=== PATIENT | female | born 1990 | race Caucasian/White ===

== ENCOUNTER 2018-09-09 05:30 | Emergency (ER) | payer BC ==
--- NOTE | 2018-09-09 06:27 | EDM.PDOC ---
ED HPI GENERAL MEDICAL PROBLEM - General Chief Complaint: Abdominal Pain Stated Complaint: left upper abdominal pain Time Seen by Provider: 09/09/18 06:06 Source of Information: Reports: Patient History Limitations: Reports: No Limitations - History of Present Illness INITIAL COMMENTS - FREE TEXT/NARRATIVE: Patient presents with LUQ pain that started about 5 hours ago at work ([employer] The pain was 8-9/10 at its worst and she took Advil. She had just eaten a milkshake before it started. She tried to work through it since she gets this pain at least weekly that lasts usually a couple hours but after awhile she couldn't take it anymore. She left work early, came to ER before going home. Now the pain is 2-3/10 she says. She has seen her PCP and had US but no definite cause; they thought it might be a yeast infection. She denies any kidney disease, infections or stones. Denies dysuria, hematuria. Pt takes OCP and missed her period last month. She had been on Mirena previously. 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 Denies: Anorexia, Bloody Stool, Constipation, Diarrhea, Decreased Appetite, Difficulty Swallowing, Hematemesis, Vomiting : Reports: Flank Pain (left). Denies: Discharge, Dysuria, Frequency, Hematuria, Urgency Musculoskeletal: Denies: Neck Pain, Shoulder Pain, Arm Pain, Back Pain, Hand Pain, Leg Pain Skin: Denies: Cyanosis, Jaundice, Mottled, Pallor, Diaphoresis Neurological: Reports: Headache (she frequently gets minor headaches). Denies: Confusion, Dizziness, Seizure, Syncope, Trouble Speaking, Difficulty Walking Psychiatric: Reports: Anxiety (she has fairly recently started getting panic attacks at work that sometimes upsets her stomach but seems unrelated to the LUQ pain). Denies: Agitation, Confusion ED EXAM, GI/ABD - Physical Exam Exam: See Below Exam Limited By: No Limitations General Appearance: Alert, WD/WN, No Apparent Distress Eyes: Bilateral: Normal Appearance, EOMI Ears: Normal External Exam, Hearing Grossly Normal Nose: Normal Inspection, No Blood Throat/Mouth: Normal Inspection, Normal Lips, Normal Teeth, Normal Gums, Normal Oropharynx, Normal Voice, No Airway Compromise Head: Atraumatic, Normocephalic Neck: Normal Inspection, Full Range of Motion Respiratory/Chest: No Respiratory Distress, Lungs Clear, Normal Breath Sounds, No Accessory Muscle Use Cardiovascular: Regular Rate, Rhythm, No Murmur GI/Abdominal Exam: Soft, No Organomegaly, No Distention, No Abnormal Bruit, Tender (LUQ and mildly suprapubic otherwise painfree). No: Guarding, Rigid Back Exam: Full Range of Motion, CVA Tenderness (L). No: CVA Tenderness (R) Extremities: Normal Inspection, Normal Range of Motion Neurological: Alert, Oriented, Normal Cognition, No Motor/Sensory Deficits Psychiatric: Normal Affect, Normal Mood Skin Exam: Warm, Dry, Intact, Normal Color, No Rash Course - Vital Signs Last Recorded V/S: Last Vital Signs Temp 98.7 F 09/09/18 05:33 Pulse 73 09/09/18 06:39 Resp 16 09/09/18 06:39 BP 131/66 09/09/18 06:39 Pulse Ox 98 09/09/18 06:39 - Orders/Labs/Meds Orders: Active Orders 24 hr Category Date Time Status Sodium Chloride 0.9% [Normal Saline] 50 ml Med 09/09/18 07:00 Active IV ASDIRECTED Medication Orders Sodium Chloride (Normal Saline) 50 mls @ 200 mls/hr IV ASDIRECTED PRITESH Last Admin: 09/09/18 07:08 Dose: 200 mls/hr Labs: Laboratory Tests 09/09/18 09/09/18 09/09/18 Range/Units 05:50 06:05 06:05 WBC 9.77 (5.00-10.00) 10^3/uL RBC 4.17 (3.80-5.50) 10^6/uL Hgb 12.7 (12.0-16.0) g/dL Hct 36.2 L (37.0-47.0) % MCV 86.8 (82.0-92.0) fL MCH 30.5 (27.0-31.0) pg MCHC 35.1 (32.0-36.0) g/dL RDW 12.5 (11.5-14.5) % Plt Count 275 (150-400) 10^3/uL MPV 8.9 (7.4-10.4) fL Immature Gran % (Auto) 0.1 (0.0-5.0) % Neut % (Auto) 59.2 (50.0-70.0) % Lymph % (Auto) 30.2 (20.0-40.0) % [place] % (Auto) 7.9 (2.0-8.0) % Eos % (Auto) 2.4 (1.0-3.0) % Baso % (Auto) 0.2 (0.0-1.0) % Immature Gran # (Auto) 0.01 (0.00-0.50) 10^3/uL Neut # (Auto) 5.79 (2.50-7.00) 10^3/uL Lymph # (Auto) 2.95 (1.00-4.00) 10^3/uL [place] # (Auto) 0.77 (0.10-0.80) 10^3/uL Eos # (Auto) 0.23 (0.10-0.30) 10^3/uL Baso # (Auto) 0.02 (0.00-0.10) 10^3/uL Sodium 138 (136-145) mmol/L Potassium 4.0 (3.3-5.3) mmol/L Chloride 101 (98-115) mmol/L Carbon Dioxide 24.6 (21.0-32.0) mmol/L Anion Gap 16.4 H (5-15) mmol/L BUN 20 (6-25) mg/dL Creatinine 0.75 (0.51-1.17) mg/dL Est Cr Clr Drug Dosing 94.71 mL/min Estimated GFR (MDRD) > 60 mL/min Glucose 93 (75 - 99) mg/dL Calcium 8.8 (8.7-10.3) mg/dL Total Bilirubin 0.4 (0.2-1.0) mg/dL AST 15 (15-37) U/L ALT 23 (12-78) U/L Alkaline Phosphatase 57 (46-116) IU/L Total Protein 7.6 (6.4-8.2) g/dL Albumin 3.08 (3.00-4.80) g/dL Lipase 122 (73-393) U/L HCG, Qual (NEGATIVE) Specimen Type Urincc Urine Color Yellow (YELLOW) Urine Appearance Slightly cloudy H (CLEAR) Urine pH 5.5 (5.0-9.0) Ur Specific [place] 1.025 (1.005-1.030) Urine Protein 30 H (NEGATIVE) mg/dL Urine Glucose (UA) Negative (NEGATIVE) mg/dL Urine Ketones Trace H (NEGATIVE) mg/dL Urine Occult Blood Negative (NEGATIVE) Urine Nitrite Negative (NEGATIVE) Urine Bilirubin Negative (NEGATIVE) Urine Urobilinogen 0.2 (0.2-1.0) E.U./dL Ur Leukocyte Esterase Negative (NEGATIVE) Urine RBC Not seen (0-5) /HPF Urine WBC 0-5 (0-5) /HPF Ur Epithelial Cells Many H /LPF Urine Bacteria Few (NONE TO FEW) /HPF Urine Mucus Few H (NEGATIVE) /LPF 09/09/18 Range/Units 06:05 WBC (5.00-10.00) 10^3/uL RBC (3.80-5.50) 10^6/uL Hgb (12.0-16.0) g/dL Hct (37.0-47.0) % MCV (82.0-92.0) fL MCH (27.0-31.0) pg MCHC (32.0-36.0) g/dL RDW (11.5-14.5) % Plt Count (150-400) 10^3/uL MPV (7.4-10.4) fL Immature Gran % (Auto) (0.0-5.0) % Neut % (Auto) (50.0-70.0) % Lymph % (Auto) (20.0-40.0) % [place] % (Auto) (2.0-8.0) % Eos % (Auto) (1.0-3.0) % Baso % (Auto) (0.0-1.0) % Immature Gran # (Auto) (0.00-0.50) 10^3/uL Neut # (Auto) (2.50-7.00) 10^3/uL Lymph # (Auto) (1.00-4.00) 10^3/uL [place] # (Auto) (0.10-0.80) 10^3/uL Eos # (Auto) (0.10-0.30) 10^3/uL Baso # (Auto) (0.00-0.10) 10^3/uL Sodium (136-145) mmol/L Potassium (3.3-5.3) mmol/L Chloride (98-115) mmol/L Carbon Dioxide (21.0-32.0) mmol/L Anion Gap (5-15) mmol/L BUN (6-25) mg/dL Creatinine (0.51-1.17) mg/dL Est Cr Clr Drug Dosing mL/min Estimated GFR (MDRD) mL/min Glucose (75 - 99) mg/dL Calcium (8.7-10.3) mg/dL Total Bilirubin (0.2-1.0) mg/dL AST (15-37) U/L ALT (12-78) U/L Alkaline Phosphatase (46-116) IU/L Total Protein (6.4-8.2) g/dL Albumin (3.00-4.80) g/dL Lipase (73-393) U/L HCG, Qual Negative (NEGATIVE) Specimen Type Urine Color (YELLOW) Urine Appearance (CLEAR) Urine pH (5.0-9.0) Ur Specific [place] (1.005-1.030) Urine Protein (NEGATIVE) mg/dL Urine Glucose (UA) (NEGATIVE) mg/dL Urine Ketones (NEGATIVE) mg/dL Urine Occult Blood (NEGATIVE) Urine Nitrite (NEGATIVE) Urine Bilirubin (NEGATIVE) Urine Urobilinogen (0.2-1.0) E.U./dL Ur Leukocyte Esterase (NEGATIVE) Urine RBC (0-5) /HPF Urine WBC (0-5) /HPF Ur Epithelial Cells /LPF Urine Bacteria (NONE TO FEW) /HPF Urine Mucus (NEGATIVE) /LPF Meds: Medications Generic Name Dose Route Start Last Admin Trade Name Dwain PRN Reason Stop Dose Admin Sodium Chloride 50 mls @ 200 mls/hr 09/09/18 07:00 09/09/18 07:08 Normal Saline IV 200 mls/hr ASDIRECTED PRITESH Administration Discontinued Medications Generic Name Dose Route Start Last Admin Trade Name Dwain PRN Reason Stop Dose Admin Iopamidol 100 ml 09/09/18 06:47 09/09/18 07:08 Isovue-300 (61%) IVPUSH 09/09/18 06:48 100 ml ONETIME ONE Administration - Re-Assessments/Exams Free Text/Narrative Re-Assessment/Exam: 09/09/18 08:[address] normal aside from some proteinuria. We discussed these findings and I advised follow up with PCP as well as trying some antacids to see if it helped her symptoms any. I also advised asking her PCP about further testing such as a 24-hour urine to evaluate the proteinuria further and may need a nephrology consult. Patient is feeling fine now without pain. Discharged to home in stable condition. Departure - Departure Time of Disposition: 07:58 Disposition: Home, Self-Care 01 Condition: Good Clinical Impression: LUQ pain Proteinuria Qualifiers: Proteinuria type: unspecified Qualified Code(s): R80.9 - Proteinuria, unspecified - Discharge Information Instructions: Abdominal Pain, Adult Referrals: PCP,Unknown [Primary Care Provider] - Forms: ED Department Discharge Additional Instructions: 1. Drink 8 cups of water daily. 2. You could try an antacid like Zantac or Mylanta to see if it provides any relief which would also help determine the cause. 3. Follow up with your PCP in 1-2 weeks if this continues or sooner if worsening. - My Orders Last 24 Hours: My Active Orders 09/09/18 07:00 Sodium Chloride 0.9% [Normal Saline] 50 ml IV ASDIRECTED - Assessment/Plan Last 24 Hours: My Active Orders 09/09/18 07:00 Sodium Chloride 0.9% [Normal Saline] 50 ml IV ASDIRECTED
[2018-09-09 06:37] LABS: ANION GAP 16.4 mmol/L (5-15); CHLORIDE,CL 101 mmol/L (98-115); SODIUM,NA 138 mmol/L (136-145)
[2018-09-09 06:40] VITALS: BP 131/66
[2018-09-09] MEDS ORDERED: Iopamidol 612 MG/ML 100 ML Bottle IVPUSH ONE (06:47)
[2018-09-09] MEDS ORDERED: Sodium Chloride 0.9% 50 ML IV SCH (07:00)
--- NOTE | 2018-09-09 08:03 | CT ---
[id number] CT/CT Abdomen Pelvis W IV EXAM: ABDOMEN AND PELVIS CT WITH CONTRAST INDICATION: Left upper quadrant abdominal pain. COMPARISON: None. DISCUSSION: The spleen is mildly enlarged measuring up to 14.4 cm in length. Mild colonic diverticulosis without evidence of diverticulitis. Grade 1 L5-S1 spondylolisthesis relating to bilateral pars defects. The osseous structures are otherwise unremarkable. The liver, gallbladder, pancreas, adrenal glands, kidneys, small bowel and the appendix are normal in appearance. No adenopathy, free air free fluid. There are scattered bilateral ovarian follicles. The pelvic structures are otherwise normal in appearance. IMPRESSION: 1. No acute findings. Erik Saunders MD 09/09/18 0802 Thank you for allowing us to participate in the care of your patient.
== END 2018-09-09 08:18 | disposition home or self-care (01) ==
LOC: KA.ED 05:30
DX: R10.12 Left upper quadrant pain (principal); R80.9 Proteinuria, unspecified
CPT/HCPCS: 36415; 74177; 80053; 81001; 83690; 84703; 85025; 99284-25; J7050; Q9967

== ENCOUNTER 2020-11-18 21:10 | Emergency (ER) | payer BC ==
[2020-11-18] MEDS ORDERED: Orphenadrine 60 MG/2 ML Inj IM ONE (21:33)
--- NOTE | 2020-11-18 21:46 | EDM.PDOC ---
ED HPI GENERAL MEDICAL PROBLEM - General Chief Complaint: General Stated Complaint: right rib/back pain Time Seen by Provider: 11/18/20 21:34 Source of Information: Reports: Patient History Limitations: Reports: No Limitations - History of Present Illness INITIAL COMMENTS - FREE TEXT/NARRATIVE: Presents with right upper anterior and posterior back pain. Patient woke up with this felt like she may have slept wrong. 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 She is having pain off and on with spasming. It hurts to take a deep breath when she moves her upper back. Easily reproducible with chest wall pain. No DVT symptoms no cough no fever chills cold symptoms or chest pain. She has done a TENS unit and taking NSAIDs with ice and heat still pain is 9-10 when she moves. Pain is very minimal at rest. - Related Data Allergies Allergy/AdvReac Type Severity Reaction Status Date / Time No Known Drug Allergies Allergy Cannot Verified 09/09/18 05:31 Remember Home Meds: Home Meds Norethindrone-Ethin. 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 Musculoskeletal: Reports: Back Pain. Denies: Neck Pain, Shoulder Pain ED EXAM, GENERAL - Physical Exam Exam: See Below Exam Limited By: No Limitations General Appearance: Alert, WD/WN, No Apparent Distress Head: Atraumatic, Normocephalic Respiratory/Chest: No Respiratory Distress, Lungs Clear, Normal Breath Sounds Cardiovascular: Normal Peripheral Pulses, Regular Rate, Rhythm Back Exam: Normal Inspection, Muscle Spasm, Other (Right upper back pain pain at the right posterior ribs 5 through 7 along with pain along her scapula throughout the whole muscle with spasming at times) Neurological: Alert, Oriented Skin Exam: Warm, Dry, Intact, No Rash Course - Orders/Labs/Meds Orders: Active Orders 24 hr Category Date Time Status Ribs 2V w Chest Rt [CR] Stat Exams 11/18/20 21:33 Ordered Meds: Medications Discontinued Medications Generic Name Dose Route Start Last Admin Trade Name Dwain PRN Reason Stop Dose Admin Orphenadrine Citrate 60 mg 11/18/20 21:33 Orphenadrine 60 Mg/2 Ml Inj IM 11/18/20 21:34 ONETIME ONE - Re-Assessments/Exams Free Text/Narrative Re-Assessment/Exam: 11/18/20 21:50 Norflex given for muscle spasms patient took NSAIDs prior to arrival. Discussed continue with [id number] analgesics with food for pain although up with a chiropractor on Friday return precautions selena with patient. X-ray obtained no signs of fracture or rib dislocation. Departure - Departure Time of Disposition: 21:51 Disposition: Home, Self-Care 01 Condition: Good Clinical Impression: Upper back pain on right side, Muscle spasm - Discharge Information *PRESCRIPTION DRUG MONITORING PROGRAM REVIEWED*: No *COPY OF PRESCRIPTION DRUG MONITORING REPORT IN PATIENT RIZWAN: No Instructions: Muscle Cramps and Spasms, [id number], Acute Back Pain, Adult Forms: ED Department Discharge Additional Instructions: continue to ice, use tens unit, f/u with chiropractor on friday. use motrin 400 mg po w/ food three times daily for pain. - My Orders Last 24 Hours: My Active Orders 11/18/20 21:33 Ribs 2V w Chest Rt [CR] Stat - Assessment/Plan Last 24 Hours: My Active Orders 11/18/20 21:33 Ribs 2V w Chest Rt [CR] Stat
[2020-11-19 01:12] VITALS: BP 150/89; PULSE 88
--- NOTE | 2020-11-19 11:32 | CR ---
[id number] RAD/RAD Ribs Right W PA Chest . Exam: RAD Ribs Right W PA Chest Clinical Data: RIGHT SCAPULAR PAIN COMPARISON: NO PREVIOUS SIMILAR EXAM IS AVAILABLE FINDINGS: The lungs are clear. There is no pneumothorax No fracture is seen There is no free air under the diaphragm The cardiac silhouette is normal IMPRESSION: NO ACUTE PROCESS Jerome Neff MD 11/19/20 2177 Thank you for allowing us to participate in the care of your patient.
== END 2020-11-18 22:05 | disposition home or self-care (01) ==
LOC: KA.ED 21:10
DX: M62.838 Other muscle spasm (principal); E66.9 Obesity, unspecified; Z68.41 Body mass index [BMI] 40.0-44.9, adult
CPT/HCPCS: 71101-RT; 96372; 99283-25; 99284; J2360

== ENCOUNTER 2021-12-06 11:16 | Emergency (ER) | payer BC ==
[2021-12-06 11:33] VITALS: BP 130/89; PULSE 90
[2021-12-06] MEDS ORDERED: Sodium Chloride 0.9% 1,000 ML ONE (11:37)
[2021-12-06] MEDS ORDERED: Sodium Chloride 0.9% 1,000 ML IV ONE (11:42)
[2021-12-06] MEDS: Sodium Chloride 0.9% 10 ML Syringe FLUSH PRN ×2 (12:06→13:21)
[2021-12-06 12:40] LABS: ANION GAP 14.5 mmol/L (5-15); CHLORIDE,CL 105 mmol/L (98-107); SODIUM,NA 141 mmol/L (136-145)
[2021-12-06 12:43] LABS: ESTIMATED GFR 91 mL/min (>=60)
== END 2021-12-06 14:30 | disposition home or self-care (01) ==
LOC: KA.ED 11:16
DX: U07.1 COVID-19 (principal); R07.89 Other chest pain; E66.9 Obesity, unspecified; Z68.41 Body mass index [BMI] 40.0-44.9, adult; Z28.310 Unvaccinated for COVID-19; Z20.822 Contact with and (suspected) exposure to COVID-19
CPT/HCPCS: 36415; 71045; 80053; 81003; 84484; 85025; 85379; 93005; 93010; 96360; 99284; 99285-25; J3490; J7030; U0002